=== PATIENT | male | born 1985 | race Caucasian/White ===

== ENCOUNTER 2017-09-06 12:57 | Emergency (ER) | payer OTHER ==
[2017-09-06 13:07] VITALS: TEMP 97.9
--- NOTE | 2017-09-06 13:50 | EDPHY ---
H & P Time Seen by Provider: 09/06/17 13:15 HPI/ROS: HPI Left thumb injury. 32-year-old male, right-hand dominant, by private vehicle. 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 While doing this he got the ventral aspect of his left mid thumb caught on a piece of metal flashing material. He sustained a deep laceration to the ventral aspect of the mid left thumb. He reports sustained arterial bleeding and route to the hospital. He has had a tetanus shot in the last year. ROS: Constitutional: No fever, no chills. No weakness. Musculoskeletal: As above. Skin: No rashes. Laceration as above. Neurological: Numbness and weakness distal thumb. Past medical history: No significant past medical history. Social history: Nonsmoker. Here by himself. Denies alcohol. Physical Exam: General Appearance: Alert, no distress. This patient is responding to questions appropriately and in full sentences. This patient appears well- hydrated and well-nourished. Eyes: Pupils equal and round no pallor or injection. No lid edema, erythema or injection. Left hand exam: Significant for a deep linear laceration measuring approximately 3 cm across the ventral aspect of the mid thumb just distal to the interphalangeal joint. Persistent arterial pulsatile bleeding. Please see wound care note for further details. Neurological: Motor sensory function is grossly intact. Cranial nerves are normal. Gait is normal. Skin: Warm and dry, no rashes. Musculoskeletal: Neck is supple and nontender. Extremities are symmetrical. All joints range without pain or impingement. Psychiatric: No agitation. No depression. Database: EKG: Imaging: Left thumb x-ray series: Negative for radiopaque foreign body or bony abnormality. Interpreted by me. Procedures: Procedure: Splint placement. A aluminum dorsal thumb splint was applied to the left thumb. After application of the splint I returned and re-examined the patient. The splint was adequately immobilizing the joint and distal to the splint the patient's circulation and sensation was intact. Procedure: Laceration repair. Verbal consent was obtained from the patient. The 3 cm laceration on the ventral mid left thumb was anesthetized in the usual fashion. The wound was irrigated, draped and explored to its base with a gloved finger. Likely flexor pollicis longus tendon laceration. No evidence of foreign body on gross exploration The wound was repaired with 10, 4.0 Ethilon sutures placed in interrupted fashion. The wound repair was tolerated well and there were no complications. The procedure was performed by myself. Emergency department course: Vital signs reviewed. On initial presentation secondary to brisk bleeding, blood pressure cuff was placed on the arm and inflated to 200 for initial tourniquet treatment. Digital block using 0.5% bupivacaine without epinephrine was performed. Blood pressure cuff tourniquet was then replaced with a [place] drain applied at the base of the thumb. Good hemostasis achieved. Wound cleansing, irrigation, exploration repair then performed. Thumb under tourniquet for approximately 20 min. 1:50 p.m., patient re-evaluated. Wound looks good. Good hemostasis. Normal capillary refill in the distal aspect of the thumb. Hand surgery paged. 2:00 p.m., spoke with on-call hand specialist Dr. Dustin Townsend. He will see this patient early next week for re-evaluation and further management. He agreed with placing the patient's left thumb in a splint which was done as above. 2:10 p.m., patient re-evaluated. Resting comfortably at this time. Left thumb has normal capillary refill distally. I discussed plan for follow-up with Dr. Townsend of the [facility]. He feels comfortable with this plan. Return to emergency department precautions were reviewed with him. Wound care instructions were discussed. All of his questions were answered. He was discharged in good condition. Differential Diagnosis: The differential diagnosis on this patient includes but is not limited to left thumb laceration, flexor pollicis longus tendon laceration. This represents a partial list of diagnoses considered. These considerations are based on history , physical exam, past history, reassessment and diagnostic testing. Smoking Status: Former smoker Constitutional: Initial Vital Signs Temperature (C) 36.6 C 09/06/17 13:01 Heart Rate 104 H 09/06/17 13:01 Respiratory Rate 20 09/06/17 13:01 Blood Pressure 155/108 H 09/06/17 13:01 O2 Sat (%) 97 09/06/17 13:01 O2 Delivery Mode Room Air Allergies/Adverse Reactions: No Known Allergies Allergy (Unverified 09/06/17 13:00) Home Medications: Medication Instructions Recorded NK [No Known Home Meds] 09/06/17 Medical Decision Making - Diagnostics Imaging Results: Imaging Impressions Finger X-Ray 09/06/17 13:01 Impression: Soft tissue laceration and metallic ring projected over the thumb. Departure - Departure Disposition: Home, Routine, Self-Care Clinical Impression: Laceration of left thumb, Flexor tendon injury left thumb Condition: Good Instructions: Tendon Laceration (ED), Finger Laceration (ED), Care For Your Stitches (ED) Additional Instructions: Read and follow provided instructions. Follow-up with Dr. Dustin Townsend, early next week for re-evaluation and further management as discussed. I spoke with Dr. Townsend and he is aware of your injury. Call his library assistant, Beata, at [phone] this afternoon for appointment time. Ibuprofen dosin mg every 6 hours with meals for the next 3 days only. Take only as needed for pain. Return to the emergency department for bleeding, discoloration or other serious concerns. Referrals: Dustin Townsend MD [Medical Doctor] - As per Instructions
[2017-09-06 14:44] VITALS: BP 150/85; PULSE 98; RESP 14; O2SAT 95
== END 2017-09-06 14:30 | disposition home or self-care (01) ==
LOC: CED 12:57
PROC: 0HQGXZZ Repair Left Hand Skin, External Approach (ICD-10-PCS; principal; 2017-09-06)
DX: S56.022A Laceration of flexor muscle, fascia and tendon of left thumb at forearm level, initial encounter (principal); Z87.891 Personal history of nicotine dependence; W23.1XXA Caught, crushed, jammed, or pinched between stationary objects, initial encounter; Y92.69 Other specified industrial and construction area as the place of occurrence of the external cause; Y99.0 Civilian activity done for income or pay; Y93.89 Activity, other specified
CPT/HCPCS: 73140-PO